=== PATIENT | male | born 1995 | race Caucasian/White ===

== ENCOUNTER 2019-04-09 21:31 | Emergency (ER) | payer OTHER ==
[~2019-04-09] VITALS: Ht 177.8 cm; Wt 84.1 kg
[2019-04-09 21:39] VITALS: TEMP 98
[2019-04-09] MEDS ORDERED: ANTIVERT 25MG25 MG PO (23:00)
[2019-04-09 23:26] VITALS: BP 118/80; PULSE 61
== END 2019-04-09 23:27 | disposition home or self-care (01) ==
LOC: COL.ER 21:31
DX: S00.93XA Contusion of unspecified part of head, initial encounter (principal); R42 Dizziness and giddiness; W51.XXXA Accidental striking against or bumped into by another person, initial encounter; Y93.67 Activity, basketball